=== PATIENT | female | born 1940 | race African-American/Black ===

== ENCOUNTER 2016-10-13 13:30 | Emergency (ER) | payer OTHER | END 2016-10-13 14:00 | disposition home or self-care (01) | LOC: ER 13:30 | DX: C34.90 Malignant neoplasm of unspecified part of unspecified bronchus or lung (principal); J44.9 Chronic obstructive pulmonary disease, unspecified; J45.909 Unspecified asthma, uncomplicated; I10 Essential (primary) hypertension; Z87.891 Personal history of nicotine dependence | CPT/HCPCS: 71010; 80048; 81001; 83735; 84484; 85025; 85610; 85730; 93005; 99285 ==